=== PATIENT | female | born 1955 | race Caucasian/White ===

== ENCOUNTER 2020-08-24 10:09 | Emergency (ER) | payer BC, SELFPAY ==
[2020-08-24 10:20] VITALS: BP 128/75; PULSE 79; RESP 14; TEMP 36.6; O2SAT 99; BMI 24.3
[2020-08-24] MEDS: SODIUM CHLORIDE 0.9% 1,000 ML 1000 ML IV (10:41)
[2020-08-24 10:49] LABS: Add Manual Diff / Slide Review NO; Basophils Absolute Auto 100 /uL (0-100); Basophils Percent Auto 0.7 % (0-2); Eosinophils Absolute Auto 300 /uL (0-450); Eosinophils Percent Auto 2.4 % (2-4); Hematocrit 39.3 % (36-46); Hemoglobin 13.4 g/dL (12.0-16.0); Lymphocytes Absolute Auto 2700 /uL (1100-4500); Lymphocytes Percent Auto 21.3 % (25-40); Mean Corpuscular Hemoglobin 33.6 PG (26-34); Mean Corpuscular Volume 98.8 fL (80-100); Monocytes Absolute Auto 1200 /uL (0-900); Monocytes Percent Auto 9.5 % (3-14); Neutrophils Absolute Auto 8400 /uL (1500-7000); Neutrophils Percent Auto 66.1 % (50-75); Platelet Count 227 X10^3/uL (150-400); Red Blood Cell Count 3.98 X10^6/uL (4.0-5.2); Red Cell Distribution Width 12.4 % (11.6-14.8); White Blood Cell Count 12.6 X10^3/uL (4.5-11.0)
[2020-08-24 11:00] LABS: Alanine Aminotransferase 15 IU/L (<35); Albumin 4.2 g/dL (3.5-5.0); Albumin Globulin Ratio 1.4 (1.0-2.8); Alkaline Phosphatase 42 U/L (38-126); Aspartate Aminotransferase 27 IU/L (14-36); BUN Creatinine Ratio 17.3 (6-22); Bilirubin Total 0.8 mg/dL (0.2-1.3); Blood Urea Nitrogen 9 mg/dL (7-17); Calcium 9.2 mg/dL (8.4-10.2); Carbon Dioxide 28 mmol/L (22-32); Chloride 98 mmol/L (98-107); Estimated Glomerular Filt Rate > 60.0 mL/min (>60); Globulin 3.1 g/dL (1.7-4.1); Glucose 113 mg/dL (80-110); HEMOLYSIS 57 (0-50); Potassium 4.1 mmol/L (3.4-5.1); Sodium 130 mmol/L (137-145); Total Protein 7.3 g/dL (6.3-8.2)
--- NOTE | 2020-08-24 11:09 | ED.NAVMDI ---
HPI - Nausea/Vomiting/Diarrhea General Chief complaint: Nausea/Vomiting/Diarrhea Stated complaint: bloating/cramping Time Seen by Provider: 08/24/20 11:09 Source: patient Mode of arrival: Ambulatory Limitations: no limitations History of Present Illness HPI Narrative: This is a 65-year-old female comes emergency department complaint of diarrhea for the past 4 days. Patient states she has had frequency of diarrhea, she has not appreciated melena or hematochezia. She has had some burning at the rectal area times. She describes cramping and discomfort bilateral lower abdomen. She has not had any nausea, no vomiting. No fevers or chills. She denies chest pain or shortness of breath. She denies any upper abdominal discomfort. She has had some mild cramping in her lower back as well. She describes the cramping as feeling like menstrual cramps. She denies dysuria, urgency or sense of frequency. She denies any drop off for decrease in her urine output. No vaginal bleeding or discharge. She states no regular medications. She has had a tubal ligation remotely. She tried some Maalox at home had Pepto-Bismol without resolution. She comes in today as her symptoms have not resolved. No sick contacts she is aware of, no other household members have similar symptoms, she has not had similar symptoms in the past least not on a frequent basis. Positive for tobacco use, alcohol and occasional THC. Patient does note she has never had a colonoscopy she did have positive Hemoccult on screening exam several years ago but never completed follow-up for colonscopy. Related Data Previous Rx's Medication Instructions Recorded amoxicillin-pot clavulanate 1 tab PO Q12H #20 tab 08/24/20 [Augmentin] Allergies Allergy/AdvReac Type Severity Reaction Status Date / Time egg AdvReac Intermediate Vomiting Verified 08/24/20 10:25 Review of Systems Review of Systems ROS Unobtainable: All systems reviewed & are unremarkable except as noted in HPI and below Patient History Medical History (Updated 08/24/20 @ 12:09 by Isabelle Bernal DO) Sinusitis Surgical History (Updated 08/24/20 @ 11:31 by Isabelle Bernal DO) H/O tubal ligation Social History Smoking Status: Current every day smoker Smoking Status: Current every day smoker alcohol intake frequency: 3 or more drinks per day Substance Use Type: does not use Exam Narrative Exam Narrative: GENERAL: Alert and oriented x three, well-nourished female in mild distress. HEENT: Head normocephalic, atraumatic, EOMI, pupils reactive, face symmetric, moist mucous membranes NECK: Supple, full range of motion CARDIOVASCULAR: Regular rate and rhythm without murmurs, rubs or gallops. RESPIRATORY: Breath sounds equal bilaterally, no wheezes rales or rhonchi. ABDOMEN: Soft, mild bilateral lower abdominal tenderness. Hyperactive bowel sounds all 4 quadrants. No guarding or rebound, rigidity, no mass : No CVA tenderness EXTREMITIES: Normal range of motion, no clubbing or edema. Neurovascularly intact NEUROLOGICAL: Cranial nerves II through XII grossly intact. Moving all extremities. Normal gait. SKIN: Warm, dry, no petechiae, no rashes or lesions. Initial Vital Signs Initial Vital Signs: Vital Signs Temperature 97.9 F 08/24/20 10:20 Pulse Rate 79 08/24/20 10:20 Respiratory Rate 14 08/24/20 10:20 Blood Pressure 128/75 08/24/20 10:20 Pulse Oximetry 99 08/24/20 10:20 Course Orders Ordered: ED Orders 08/24/20 10:38 Complete Blood Count AUTO DIFF Stat Comprehensive Metabolic Panel Stat Lipase Stat 08/24/20 11:39 CT abdomen pelvis w con Stat Discontinued Medications Sodium Chloride (Normal Saline 0.9%) 1,000 mls @ 1,000 mls/hr IV BOLUS ONE Stop: 08/24/20 11:27 Last Infusion: 08/24/20 12:29 Dose: 0 mls/hr Documented by: Admin: 08/24/20 10:41 Dose: 1,000 mls/hr Documented by: CHEL Vital Signs Vital signs: Vital Signs - 8 hr 08/24/20 10:20 08/24/20 11:55 Temperature 97.9 F Pulse Rate 79 66 Respiratory Rate 14 16 Blood Pressure 128/75 135/66 Pulse Oximetry 99 99 MDM - Nausea/Vomiting/Diarrhea Lab Data Attestation: I reviewed the patient's lab results. Result diagrams: 08/24/20 10:38 08/24/20 10:38 Labs: Lab Results 08/24/20 08/24/20 08/24/20 Range/Units 10:38 10:38 10:38 WBC 12.6 H (4.5-11.0) X10^3/uL RBC 3.98 L (4.0-5.2) X10^6/uL Hgb 13.4 (12.0-16.0) g/dL Hct 39.3 (36-46) % MCV 98.8 (80-100) fL MCH 33.6 (26-34) PG MCHC 34.0 (30-36) % RDW 12.4 (11.6-14.8) % Plt Count 227 (150-400) X10^3/uL Neut % (Auto) 66.1 (50-75) % Lymph % (Auto) 21.3 L (25-40) % Taylor % (Auto) 9.5 (3-14) % Eos % (Auto) 2.4 (2-4) % Baso % (Auto) 0.7 (0-2) % Neut # (Auto) 8400 H (8303-1912) /uL Lymph # (Auto) 2700 (3748-8374) /uL Taylor # (Auto) 1200 H (0-900) /uL Eos # (Auto) 300 (0-450) /uL Baso # (Auto) 100 (0-100) /uL Sodium 130 L (137-145) mmol/L Potassium 4.1 (3.4-5.1) mmol/L Chloride 98 (98-107) mmol/L Carbon Dioxide 28 (22-32) mmol/L BUN 9 (7-17) mg/dL Creatinine 0.52 (0.52-1.04) mg/dL Estimated GFR > 60.0 (>60) mL/min BUN/Creatinine Ratio 17.3 (6-22) Glucose 113 H (80-110) mg/dL Calcium 9.2 (8.4-10.2) mg/dL Total Bilirubin 0.8 (0.2-1.3) mg/dL AST 27 (14-36) IU/L ALT 15 (<35) IU/L Alkaline Phosphatase 42 (38-126) U/L Total Protein 7.3 (6.3-8.2) g/dL Albumin 4.2 (3.5-5.0) g/dL Globulin 3.1 (1.7-4.1) g/dL Albumin/Globulin Ratio 1.4 (1.0-2.8) Lipase 56 (23-300) U/L Urine Dip Bedside Urine Glucose Negative Bedside Urine Bilirubin - Negative Bedside Urine Ketone - Negative Urine Specific [place] 1.015 Bedside Urine Occult Blood - Negative Bedside Urine pH 6.0 Bedside Urine Protein - Negative Bedside Urine Urobilinogen - Negative Bedside Urine Nitrite - Negative Bedside Urine Leukocytes - Negative Esterase Imaging Data CT scan - abdomen/pelvis: Radiologist's Impression: [address] [id number] Scan ReportSigned Patient: [facility] [id number]: 1955cct:[id number]/Sex: 65 / FDate of Service: 08/24/20Loc: EDAccession Number: [id number] Procedure: CT abdomen pelvis w con Ordering Provider: Isabelle Bernal D.O. PROCEDURE: CT ABDOMEN PELVIS W CON INDICATIONS: b/l lower abd pain, diarrhea x 4 days. TECHNIQUE: After the administration of intravenous contrast, 5 mm thick sections acquired from the diaphragm to the symphysis. 5 mm coronal and sagittal reformats were acquired. For radiation dose reduction, the following was used: automated exposure control, adjustment of mA and/or kV according to patient size. COMPARISON: None. FINDINGS: Image quality: Excellent. ABDOMEN: Lung bases: Lung bases are clear. Heart size is normal. Solid organs: Liver is normal in size and enhancement. Gallbladder appears normal. Biliary system is non dilated. Pancreas enhances normally. Spleen is normal in size and enhancement. No adrenal nodules. Kidneys demonstrate normal size and enhancement, without hydronephrosis. Multiple cysts are seen in the left kidney. Peritoneum and bowel: Bowel wall thickening and inflammatory fat stranding is seen surrounding a diverticulum in the distal sigmoid colon with inflammatory changes extending into the rectum. No discrete fluid collection is seen. There is no pneumoperitoneum. There are no signs of bowel obstruction. The appendix appears normal. Nodes and vessels: No retroperitoneal or mesenteric adenopathy by size criteria. Aorta and inferior vena cava are normal in size. Mild to moderate atherosclerotic calcifications are seen in the aorta. Miscellaneous: No ventral hernias. PELVIS: Genitourinary: Bladder wall thickness is not well evaluated due to underdistention. The uterus is normal in size. Miscellaneous: No inguinal hernias or adenopathy. Bones: No suspicious bony lesions. No vertebral body compression fractures. IMPRESSION: Acute uncomplicated sigmoid diverticulitis. Dictated by: Miller Caballero M.D. on 08/24/2020 at 11:51 Approved by: Miller Caballero M.D. on 08/24/2020 at 11:57 [facility] Narrative Medical decision making narrative: This is a 65-year-old female with complaint of 4 days of abdominal pain, bloating, cramping and very small amounts of diarrhea. Patient states symptoms have not been improving. Patient labs show a mild leukocytosis, no other significant altered labs. CT imaging was ordered as patient had a positive Hemoccult several years ago but never followed up for colonoscopy. Todays imaging shows diverticulitis, plan for Augmentin BID. Patient and I did discuss that this does not equate to colonoscopy screening and she still does need a colonoscopy. She expresses understanding. Discharge Plan Departure Patient Disposition: Home Clinical Impression: Sigmoid diverticulitis Instructions: DI for Diverticulosis Activity Restrictions/Additional Instructions: Follow-up with her physician in the next 3-5 days if you are not having resolution of your symptoms. Your imaging today shows diverticulitis. You may take Tylenol to a 1000 mg every 8 hours and/or ibuprofen up to 600 mg every 6 hours as needed for pain. Take antibiotics until they are completely gone. [facility] [place] Return to the ER for fevers greater 100.4 F, worsening abdominal or back pain, persistent vomiting, black or bloody stools, but has this or passing out or other new or concerning symptoms. Prescriptions: New amoxicillin-pot clavulanate [Augmentin] 875-125 mg tablet 1 tab PO Q12H Qty: 20 RF: 0 Referrals: Hilary Parekh MD [Physician] -
--- NOTE | 2020-08-24 11:39 | DI.CT.S_ITS ---
PROCEDURE: CT ABDOMEN PELVIS W CON INDICATIONS: b/l lower abd pain, diarrhea x 4 days. TECHNIQUE: After the administration of intravenous contrast, 5 mm thick sections acquired from the diaphragm to the symphysis. 5 mm coronal and sagittal reformats were acquired. For radiation dose reduction, the following was used: automated exposure control, adjustment of mA and/or kV according to patient size. COMPARISON: None. FINDINGS: Image quality: Excellent. ABDOMEN: Lung bases: Lung bases are clear. Heart size is normal. Solid organs: Liver is normal in size and enhancement. Gallbladder appears normal. Biliary system is non dilated. Pancreas enhances normally. Spleen is normal in size and enhancement. No adrenal nodules. Kidneys demonstrate normal size and enhancement, without hydronephrosis. Multiple cysts are seen in the left kidney. Peritoneum and bowel: Bowel wall thickening and inflammatory fat stranding is seen surrounding a diverticulum in the distal sigmoid colon with inflammatory changes extending into the rectum. No discrete fluid collection is seen. There is no pneumoperitoneum. There are no signs of bowel obstruction. The appendix appears normal. Nodes and vessels: No retroperitoneal or mesenteric adenopathy by size criteria. Aorta and inferior vena cava are normal in size. Mild to moderate atherosclerotic calcifications are seen in the aorta. Miscellaneous: No ventral hernias. PELVIS: Genitourinary: Bladder wall thickness is not well evaluated due to underdistention. The uterus is normal in size. Miscellaneous: No inguinal hernias or adenopathy. Bones: No suspicious bony lesions. No vertebral body compression fractures. IMPRESSION: Acute uncomplicated sigmoid diverticulitis. Dictated by: Miller Caballero M.D. on 08/24/2020 at 11:51 Approved by: Miller Caballero M.D. on 08/24/2020 at 11:57
[2020-08-24 11:40] LABS: Lipase 56 U/L (23-300)
[2020-08-24 11:55] VITALS: BP 135/66; PULSE 66; RESP 16; O2SAT 99
== END 2020-08-24 12:39 | disposition home or self-care (01) ==
PROVIDERS: Emergency Provider Emergency Medicine
DX: K57.32 Diverticulitis of large intestine without perforation or abscess without bleeding (principal)
CPT/HCPCS: 36415; 74177; 80053; 81003; 83690; 85025; 96360; 96361; 99283; 99284; Q9967

== ENCOUNTER → 2020-10-29 09:50 | Outpatient (CLI) | payer BC, SELFPAY ==
[2020-10-29 10:41] LABS: COVID19 -Nasal RAPID Negative (Negative)
== END ==
PROVIDERS: PCP Student in an Organized Health Care Education/Training Program; Visit Provider Surgery
DX: Z20.822 Contact with and (suspected) exposure to COVID-19 (principal)
CPT/HCPCS: 87635; C9803

== ENCOUNTER 2020-10-30 11:45 | Day surgery (SDC) | payer BC, SELFPAY ==
[2020-10-30] VITALS (8 sets, daily range): BP systolic 106–139; BP diastolic 65–86; PULSE 68–78; RESP 14–17; TEMP 36.2–36.8; O2SAT 96–100; BMI 23.8
--- NOTE | 2020-10-30 | PATH_ITS ---
[facility] Accession Number: [id number] . 01 Material submitted: . PART A: colon - ASCENDING COLON PART B: body - POLYP @40CM PART C: body - POLYP @15CM X2 . 01 Clinical history: . A) RULE OUT COLITIS . 02 Diagnosis: A. Ascending Colon, Biopsy: Colonic mucosa with no diagnostic abnormality. Negative for active, chronic, and microscopic colitis. Negative for dysplasia and malignancy. . B. Colon, Polyp at 40 cm, Biopsy: Fragments of hyperplastic polyp and benign lymphoid aggregate. . C. Colon, Polyp at 15 cm x2, Biopsies: Hyperplastic polyps. [facility] 11/05/2020 1451 Local . 02 Electronically signed: . Estee Candelario MD, Pathologist NPI- [id number] . 01 Gross description: . Part A: ASCENDING COLON: Received in formalin are 2 fragment(s) of benton, soft tissue measuring 0.1 x 0.1 x 0.1 cm to 0.2 x 0.2 x 0.2 cm submitted entirely in 1 cassette(s) Part B: POLYP @40CM: Received in formalin are 3 fragment(s) of benton, soft tissue measuring 0.1 x 0.1 x 0.1 cm to 0.2 x 0.1 x 0.1 cm submitted entirely in 1 cassette(s) Part C: POLYP @15CM X2: Received in formalin are 4 fragment(s) of benton, soft tissue measuring 0.1 x 0.1 x 0.1 cm to 0.4 x 0.2 x 0.2 cm submitted entirely in 1 cassette(s) /STEPHANIE 10/31/20202024 Local . 02 Pathologist provided ICD-10: Z12.11, K63.5 . 02 CPT . 309796, [id number], [id number] Performed at: 01 [facility] [address] [id number] MD Mani Huff MD Phone: [phone] Performed at: 02 [facility] [address] [place], [place] [id number] MD Estee Candelario MD Phone: [phone]
--- NOTE | 2020-10-30 13:00 | PM.HP.1 ---
History of Present Illness History of Present Illness Date Patient Seen: 10/30/20 Time Patient Seen: 13:00 Chief complaint: SDC Narrative: This is a 65-year-old woman with history of smoking, who 3 months ago was seen in the ER for left lower quadrant pain and was diagnosed with uncomplicated diverticulitis. She was sent home with 10 days of oral antibiotics, and completed her antibiotics, and her symptoms resolved. She says she has never had a colonoscopy. She did have a positive Cologuard test a few years ago, but never followed up to get the colonoscopy. She is not currently have a primary care doctor, and is not sure when she last saw a primary care doctor. She says she is otherwise well, and denies any apparent medical problems. She takes a daily multivitamin. ROS: She denies constipation, melena, hematochezia, unexplained abdominal pain, unexplained weight loss. She denies fevers. She reports unknown amount of weight gain since COVID. Thirteen system review is otherwise negative other than as mentioned below and in HPI. PE GENERAL: Alert, comfortable, moderate psychomotor agitation. Appears stated age. Answers questions promptly and appropriately. Vital signs noted. HENT: Normocephalic, atraumatic. Hearing intact. EYES: Conjunctiva pink, sclera white, no periorbital swelling. CARDIOVASCULAR: Regular rate. No pedal edema. RESPIRATORY: Non-tachypneic, breathing comfortably on room air. GASTROINTESTINAL: Abdomen soft and non-distended, nontender, no masses, no incisional scars, no palpable hernias GENITALURINARY: No flank tenderness. MUSCULOSKELETAL: Equal tone and mass bilaterally. SKIN: Warm, dry, soft, appropriate color for ethnicity. No other lesions, rashes, or wounds. NEURO: Alert and Oriented X 3. No gross sensory deficits, or cognitive issues. PSYCH: Appropriate affect and mood. Patient History Medical History Sinusitis Surgical History H/O tubal ligation Family & Social History Social History: household members none Tobacco & Substance use: Tobacco type cigarettes Smoking Status Current every day smoker Smoking packs per day 1 alcohol intake current alcohol intake frequency 3 or more drinks per day Substance Use Type does not use Meds Home Medications and Allergies Home Medications Medication Instructions Recorded Confirmed Type multivitamin 1 tab PO DAILY 09/05/20 10/30/20 History Allergies Allergy/AdvReac Type Severity Reaction Status Date / Time egg AdvReac Intermediate Vomiting Verified 10/30/20 12:11 Exam Vital Signs (past 8 hours): - 10/30/20 12:15 Temperature 98.2 F Pulse Rate 71 Respiratory Rate 14 Blood Pressure 139/86 Pulse Oximetry 100 Oxygen Delivery Method Room Air Assessment & Plan Assessment and plan (1) Smoker unmotivated to quit: Status: Chronic (2) Positive colorectal cancer screening using Cologuard test: Status: Acute (3) Diverticulitis: Status: Acute Assessment & Plan narrative: Risks and benefits of screening colonoscopy and possible polypectomy were discussed with the patient including risk of bleeding, perforation, need for additional procedures, risks of anesthesia. The patient desires to proceed with the colonoscopy procedure. COVID-19 COVID-19 status: Negative Result date/Date tested (Pos, Neg/Pending): 10/29/20 Time Spent With Patient Time with patient: 15-24 minutes Quality VTE Deep Vein Thrombosis/Pulmonary Embolism Present on Admission: No
--- NOTE | 2020-10-30 13:03 | P.OP.ENDO_ITS ---
Operative Date/Time/Diagnoses Date of procedure: 10/30/20 Time of procedure: 13:03 Pre-op diagnosis: Positive Cologuard test, history diverticulitis, never had a colonoscopy Post-op diagnosis: other (Extensive diverticulosis, friable colon wall in the ascending colon, a few small polyps in the sigmoid and rectum) Procedure & Clinicians Study performed: Colonoscopy Procedural sedation performed by the endoscopist Biopsy of ascending colon wall with standard forceps Polypectomy x3 with Jumbo forceps Same procedure as scheduled: Yes Indications: Positive Cologuard test, history of diverticulitis, never had a colonoscopy Surgeon: Vanessa Landis Procedure Notes SCOAP/Timeout: Performed Procedure in detail: The patient was brought to the room and placed in left lateral decubitus position with all bony prominences padded. A time-out was performed and then the patient was given procedural sedation starting with 4 mg of Versed and 100 mcg of fentanyl. Vitals were monitored throughout the procedure and remained stable. Once adequately sedated, the procedure was begun. A rectal exam was performed revealing no abnormalities. The colonoscope was then introduced to the rectum and advanced to the cecum in the usual fashion. The cecum was identified by the appendiceal orifice, the mucosal tri- fold, and the ileocecal valve. The scope was then retracted while rotating side to side and examining each mucosal fold. In the ascending colon there was an about a 15-20 cm patch of very friable mucosa which was slightly bleeding. This area is biopsied to rule out colitis. There was extensive diverticulosis throughout the colon, worst in the descending and sigmoid colon. Three polyps were removed from the rectum and sigmoid colon using Jumbo forceps. The prep was moderate, but not adequate to rule out lesions smaller than 5 mm. At the conclusion of the procedure retroflexion was performed and small grade 1-2 internal hemorrhoids without stigmata of bleeding were seen. The scope was then withdrawn from the rectum the procedure was concluded. The patient tolerated the procedure well and was transferred to the PACU in stable condition. A total of 7 mg of Versed and 200 micro g of fentanyl were used for the entire procedure. Scope withdrawal time: 13 Sedation minutes: 21 Findings: diverticulosis, polyp and other findings (Friable mucosa in the ascending colon) Specimen(s): other (Biopsy of ascending colon mucosa, polypectomy x3) Complications: none Impression: Potential cause of positive Cologuard is this friable mucosa in the ascending colon which may be microscopic or inflammatory colitis. She did have 3 small polyps, which appeared to be benign adenomatous/precancerous polyps. Post-procedure Recommendations: Colonscopy in 5 years Follow up: as needed Disposition: PACU
[2020-10-30] MEDS: MIDAZOLAM 5 MG/5 ML VIAL IV (13:30)
[2020-10-30] MEDS: fentaNYL 250 MCG/5 ML INJ IV (13:30)
== END 2020-10-30 14:15 | disposition home or self-care (01) ==
PROVIDERS: PCP Student in an Organized Health Care Education/Training Program; Referring Provider Surgery; Visit Provider Surgery
PROC: 0DJD8ZZ Inspection of Lower Intestinal Tract, Via Natural or Artificial Opening Endoscopic (ICD-10-PCS; CPT 45378; principal; 2020-10-30 13:00)
DX: R19.5 Other fecal abnormalities (principal); F17.200 Nicotine dependence, unspecified, uncomplicated; K57.30 Diverticulosis of large intestine without perforation or abscess without bleeding; Z87.19 Personal history of other diseases of the digestive system; K63.5 Polyp of colon
CPT/HCPCS: 45380; 99152; J2250; J3010

== ENCOUNTER 2021-12-23 01:26 | Emergency (ER) | payer BC, SELFPAY ==
[2021-12-23 01:30] VITALS: BP 139/98; PULSE 80; RESP 18; O2SAT 99; BMI 23.8
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
--- NOTE | 2021-12-23 01:33 | DI.RAD.S_ITS ---
PROCEDURE: XR ANKLE LT MIN 3V INDICATIONS: pain after fall TECHNIQUE: 3 views of the ankle were acquired. COMPARISON: None. FINDINGS: Bones: There is a spiral fracture of the distal fibular diaphysis with moderate lateral displacement and mild lateral angulation. There is associated widening of the distal tibial fibular syndesmosis. A fracture of the medial malleolus is also demonstrated with moderate lateral displacement. There is a suspected small posterior malleolus fracture. There is lateral dislocation of the tibiotalar joint with mild lateral angulation. Soft tissues: There is periarticular soft tissue swelling at the tibiotalar joint. Achilles tendon appears intact. IMPRESSION: 1. Trimalleolar fracture-dislocation of the ankle as described. Dictated by: Mani Granado M.D. on 12/23/2021 at 1:59 Approved by: Mani Granado M.D. on 12/23/2021 at 2:02
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
--- NOTE | 2021-12-23 01:36 | ED.LOWEXIN ---
HPI - Extremity Injury (Lower) General Chief Complaint: Extremity Injury, Lower Stated Complaint: ankle pain Time Seen by Provider: 12/23/21 01:30 Source: patient Mode of arrival: EMS Limitations: no limitations History of Present Illness HPI Narrative: 66-year-old female who arrived by EMS for evaluation of a left ankle injury. She stated that this evening she was drinking and ?partying? with some friends when she was going inside and she missed a step and fell. She sustained an injury to her left ankle. She tried to stand on it afterwards but was unable to. She stated that she did hit her head. No loss of consciousness. She arrived not in a backboard not in a cervical collar. No splint to her left leg. Related Data Home Medications Medication Instructions Recorded Confirmed multivitamin 1 tab PO DAILY 09/05/20 10/30/20 Previous Rx's Medication Instructions Recorded hydrocodone 5 mg-acetaminophen 325 1 tab PO Q6H PRN pain #14 tabs 12/23/21 mg tablet Allergies Allergy/AdvReac Type Severity Reaction Status Date / Time egg AdvReac Intermediate Vomiting Verified 10/30/20 12:11 Review of Systems Constitutional Constitutional: Reports system reviewed and no additional complaints, except as documented Musculoskeletal Musculoskeletal: Reports system reviewed and no additional complaints, except as documented Integumentary/Breasts Skin/Breast: Reports system reviewed and no additional complaints, except as documented Neurologic Neurologic: Reports system reviewed and no additional complaints, except as documented Hematologic/Lymphatic On Anticoagulants: No Patient History Medical History Sinusitis Surgical History H/O tubal ligation Social History marital status: unknown household members: none Smoking Status: Current every day smoker alcohol intake: current Smoking Status: Current every day smoker alcohol intake frequency: 3 or more drinks per day Substance Use Type: does not use Exam Initial Vital Signs Initial Vital Signs: Vital Signs Pulse Rate 80 12/23/21 01:30 Respiratory Rate 18 12/23/21 01:30 Blood Pressure 139/98 H 12/23/21 01:30 Pulse Oximetry 99 12/23/21 01:30 Oxygen Delivery Method 12/23/21 01:30 HENMT Head: contusion (Left temporal region) Face and sinus: normal facial exam Resp Effort & Inspection: normal respiratory effort Auscultation: clear to auscultation bilaterally Cardio Rate: regular rate Rhythm: regular rhythm Skin Other: Bruising to the left temporal region. Also has bruising along the medial aspect of the left ankle. Neuro Speech: speech normal Sensory Exam: no sensory deficits noted Other: Alert oriented x3. Extrem Other: Knee is unremarkable. Does have swelling to her left ankle with tenderness to palpation. Procedures Orthopedic Fracture Reduction Fracture #1: Time Out Performed: Yes Side: left Fracture Reduction Location: tibia and fibula Analgesia: none Technique: direct manipulation Post Reduction X-rays Demonstrate: anatomical reduction Post-reduction neuro exam: no change Post-reduction vascular exam: no change Splint Applied: Yes Orthopedic Splinting/Casting Injury #1: Side: left Lower Extremity Injury Location: ankle Lower Extremity Immobilizer: posterior splint and stirrup splint Post splinting neuro exam: intact Post splinting vascular exam: intact Placed by: Provider Scores Nexus Score for C-Spine Focal Neurologic deficit present: No Midline spinal tenderness present: No Altered level of conciousness present: No Intoxication present: Yes Distracting Injury Present: No Nexus Criteria for C-spine: 1 Course Orders Ordered: ED Orders 12/23/21 01:33 CT cervical spine wo con Stat CT head/brain wo con Stat XR ankle LT min 3V Stat 12/23/21 03:45 XR ankle LT min 3V Stat Vital Signs Vital signs: Vital Signs - 8 hr 12/23/21 01:30 Pulse Rate 80 Respiratory Rate 18 Blood Pressure 139/98 H Pulse Oximetry 99 Oxygen Delivery Method Room Air MDM - Extremity Injury (Lower) Imaging Data Extremity x-ray #1: Radiologist's Impression: [address] [address] XRay Report Signed Patient: Teresa Duval MR#: [id number] : 1955 Acct:[id number] Age/Sex: 66 / F Date of Service: 12/23/21 Loc: ED Accession Number: [id number] ?? Procedure: XR ankle LT min 3V Ordering Provider: Pedro Lee D.O. PROCEDURE:? XR ANKLE LT MIN 3V ? INDICATIONS:? pain after fall ? TECHNIQUE:? 3 views of the ankle were acquired.? ? COMPARISON:? None. ? FINDINGS:? ? Bones:? There is a spiral fracture of the distal fibular diaphysis with moderate lateral displacement and mild lateral angulation.? There is associated widening of the distal tibial fibular syndesmosis.? A fracture of the medial malleolus is also demonstrated with moderate lateral displacement.? There is a suspected small posterior malleolus fracture.? There is lateral dislocation of the tibiotalar joint with mild lateral angulation. ? Soft tissues:? There is periarticular soft tissue swelling at the tibiotalar joint.? Achilles tendon appears intact.? ? ? IMPRESSION:? ? 1. Trimalleolar fracture-dislocation of the ankle as described. ? ? ? Dictated by: Mani Granado M.D. on 12/23/2021 at 1:59 ? ? Approved by: Mani Granado M.D. on 12/23/2021 at 2:02?? Extremity x-ray #2: Radiologist's Impression: Obliquely oriented, minimally displaced fracture of the medial and lateral malleoli status post reduction with anatomic alignment CT - cervical spine: Radiologist's Impression: Degenerative spondylolysis. No acute fracture CT scan - head: Radiologist's Impression: No acute intracranial findings MDM Narrative Medical decision making narrative: Cervical collar was placed upon arrival to the emergency department secondary to her intoxication status. Head CT cervical spine CT are unremarkable. Patient does have a trimalleolar fracture to the left ankle. She is neurovascularly intact. This was reduced without incident. Postreduction x-rays show anatomic alignment. Patient was placed in a splint. She was informed to remain nonweightbearing and to treat the splint like a cast and keep it on and keep it dry. She was given information for follow-up with Orthopedic surgery. Was given return precautions. She expressed understanding and agreement. Discharge Plan Departure Patient Disposition: Home Clinical Impression: Ankle fracture, left, Alcohol intoxication, Contusion of scalp Instructions: How to Use Crutches, DI for Ankle Fracture, How to Take Care of Your Splint Activity Restrictions/Additional Instructions: The splint that was placed this evening does need to stay on and stay clean and stay dry. You do need to treat it like a cast. Your to use the crutches. Do not walk on your left leg. You are going to require follow-up with orthopedic surgery as the injury that you have sustained is most likely going to require surgical intervention. Contact the orthopedic providers with a number provided below. Contact your primary doctor for a follow-up. A prescription for pain medicine was transmitted to [facility] in [place]. Return to the emergency department for any new or worsening symptoms. Prescriptions: New hydrocodone-acetaminophen 5-325 mg tablet 1 tab PO Q6H PRN (Reason: pain) Qty: 14 0RF No Action multivitamin Tablet 1 tab PO DAILY Referrals: Florencio Moore MD [Primary Care Provider] - Ana M Petersen MD [Physician] -
--- NOTE | 2021-12-23 03:45 | DI.RAD.S_ITS ---
PROCEDURE: XR ANKLE LT MIN 3V INDICATIONS: post reduction in splint TECHNIQUE: 3 views of the ankle were acquired. COMPARISON: [facility], , XR ANKLE LT MIN 3V, 12/23/2021, 1:48. FINDINGS: Bones: Interval reduction with improved alignment of trimalleolar fracture. Soft tissues: No tibiotalar joint effusion. Achilles tendon appears normal. IMPRESSION: Post reduction with improved alignment of trimalleolar fracture. Dictated by: Jeana August M.D. on 12/23/2021 at 11:02 Approved by: Jeana August M.D. on 12/23/2021 at 11:05
--- NOTE | 2021-12-23 04:30 | PC.NURSE ---
splint applied per Dr Lee, pt refused crutches states she already has a couple of pair at home.
[2021-12-23 06:28] VITALS: BP 134/86; PULSE 82; RESP 18; O2SAT 98
== END 2021-12-23 06:29 | disposition home or self-care (01) ==
PROVIDERS: Emergency Provider Emergency Medicine; PCP Student in an Organized Health Care Education/Training Program
DX: S82.852A Displaced trimalleolar fracture of left lower leg, initial encounter for closed fracture (principal); S00.03XA Contusion of scalp, initial encounter; W10.9XXA Fall (on) (from) unspecified stairs and steps, initial encounter; F10.129 Alcohol abuse with intoxication, unspecified
CPT/HCPCS: 27752; 70450; 72125; 73610; 99284

== ENCOUNTER → 2022-11-28 12:06 | Outpatient (CLI) | payer BC, SELFPAY ==
[2022-11-28 13:15] LABS: Add Manual Diff / Slide Review NO; Basophils Absolute Auto 100 /uL (0-100); Basophils Percent Auto 0.9 % (0-2); Eosinophils Absolute Auto 300 /uL (0-450); Eosinophils Percent Auto 4.3 % (2-4); Hematocrit 42.5 % (36-46); Hemoglobin 14.9 g/dL (12.0-16.0); Lymphocytes Absolute Auto 3300 /uL (1100-4500); Lymphocytes Percent Auto 39.9 % (25-40); Mean Corpuscular HGB Conc 35.2 % (30-36); Mean Corpuscular Hemoglobin 34.2 PG (26-34); Mean Corpuscular Volume 97.2 fL (80-100); Monocytes Absolute Auto 900 /uL (0-900); Neutrophils Absolute Auto 3600 /uL (1500-7000); Neutrophils Percent Auto 43.9 % (50-75); Platelet Count 260 X10^3/uL (150-400); Red Blood Cell Count 4.37 X10^6/uL (4.0-5.2); Red Cell Distribution Width 12.8 % (11.6-14.8); White Blood Cell Count 8.1 X10^3/uL (4.5-11.0)
[2022-11-28 13:25] LABS: Alanine Aminotransferase 22 IU/L (<35); Albumin 4.7 g/dL (3.5-5.0); Albumin Globulin Ratio 1.6 (1.0-2.8); Alkaline Phosphatase 65 U/L (38-126); Aspartate Aminotransferase 28 IU/L (14-36); BUN Creatinine Ratio 20.7 (6-22); Bilirubin Total 0.8 mg/dL (0.2-1.3); Blood Urea Nitrogen 12 mg/dL (7-17); Carbon Dioxide 28 mmol/L (22-32); Chloride 96 mmol/L (98-107); Cholesterol 254 mg/dL (140-199); Estimated Glomerular Filt Rate > 60 mL/min (>60); Glucose 100 mg/dL (80-110); HDL Cholesterol 61 mg/dL (40-60); HEMOLYSIS < 15 (0-50); LDL Cholesterol Calculated 150 mg/dL (<100); Potassium 4.8 mmol/L (3.4-5.1); Sodium 134 mmol/L (137-145); Total Protein 7.7 g/dL (6.3-8.2); Triglycerides 214 mg/dL (35-150)
[2022-11-28 13:53] LABS: TSH w/ Reflex to FT4 1.78 uIU/mL (0.47-4.68)
[2022-11-28 14:23] LABS: Hep C Virus Ab w/Reflex Quant NEGATIVE s/c (NEGATIVE)
[2022-11-28 15:24] LABS: Appearance Urine UA CLEAR; Bilirubin Urine UA NEGATIVE (NEGATIVE); Color Urine UA YELLOW; Glucose Urine UA NEGATIVE (Negative); Ketones Urine UA NEGATIVE (NEGATIVE); Leukocyte Esterase Urine UA NEGATIVE (NEGATIVE); Nitrite Urine UA NEGATIVE (Negative); Occult Blood Urine UA NEGATIVE (Negative); Protein Urine UA NEGATIVE (Negative); Specific Gravity Urine UA <=1.005 (1.000-1.035); Urobilinogen Urine UA 0.2 E.U./dL (0.2)
[2022-11-28 15:33] LABS: pH Urine UA 7.5 (4.5-8.0)
[2022-11-28 15:41] LABS: Bacteria Urine Few (2-10); Culture Indicated Urine Cult Not Indicated; RBC Urine 0-1/HPF (0-5/HPF); Squamous Epithelial Cell Urine 5-10 /HPF (0-5/HPF); WBC Urine 0-1/HPF (0-5/HPF)
== END ==
PROVIDERS: PCP Pediatrics; Referring Provider Pediatrics; Visit Provider Pediatrics
DX: Z00.00 Encounter for general adult medical examination without abnormal findings (principal); E78.2 Mixed hyperlipidemia; Z72.0 Tobacco use
CPT/HCPCS: 36415; 80053; 80061; 81001; 84443; 85025; 86803

== ENCOUNTER → 2023-01-19 | Outpatient (CLI) | payer BC, SELFPAY ==
--- NOTE | 2023-01-19 10:34 | DI.RAD.S_ITS ---
Bone Density Report Name: STANLEY LOPEZ Age: 67 Sex: Female Ethnicity: White Date of : 1955 Indication: osteopenia; Referring Provider: JAXON BATISTA Study: Bone densitometry was performed. Exam Date: January 19, 2023 Accession number: [id number] Bone Density: Region BMD T-score Z-score Classification AP Spine(L1-L4) 0.943 -0.9 0.9 Normal Femoral Neck (Left) 0.627 -2.0 -0.4 Osteopenia Total Hip (Left) 0.695 -2.0 -0.7 Osteopenia Femoral Neck (Right) 0.639 -1.9 -0.3 Osteopenia Total Hip (Right) 0.711 -1.9 -0.6 Osteopenia Total Hip Mean 0.703 -2.0 -0.7 Osteopenia World Health Organization criteria for BMD impression classify patients as: Normal (T-score at or above -1.0), Osteopenia (T-score between -1.0 and -2.5), or Osteoporosis (T-score at or below -2.5). 10-year Fracture Risk(1): Major Osteoporotic Fracture 14% Hip Fracture 4.3% Reported Risk Factors: [place] (), Neck BMD=0.627, BMI=24.1, smoking, alcohol use (1) FRAX(R) Version 3.08. Fracture probability calculated for an untreated patient. Fracture probability may be lower if the patient has received treatment. Previous Exams: -- Region Exam Age BMD T-score BMD Change BMD Change Date g/cm2 vs Baseline vs Previous -- Total Hip(Left) 01/19/2023 67 0.695 -2.0 0.012 (1.7%) 0.012 (1.7%) 01/19/2023 67 0.683 -2.1 -- *Denotes significance at 95% confidence level, LSC for Total Hip = 0.027 g/cm2 Impression: The patient has low bone mass, based on the Left Total Hip T-score. The patient has an estimated ten-year risk of hip fracture of 4.3% and an estimated ten-year risk of major fracture of 14%, based on the WHO FRAX algorithm. The patient has risk factors, including: smoking, excessive alcohol use. No significant bone loss was observed. Discussion: BONE DENSITY IS LOW AT ONE OR MORE SKELETAL SITES. THE PATIENT'S BMD AND CLINICAL RISK FACTORS CONTRIBUTE TO THIS PATIENT'S INCREASED RISK OF FRACTURE. This patient's lowest T-score is low at one or more skeletal sites. It meets the World Health Organization's (WHO) criteria for low bone mass (T-score between -1.0 and -2.5). The patient's 10-year risk of hip fracture as calculated by FRAX exceeds the threshold where pharmacological therapy is recommended by the National Osteoporosis Foundation (NOF). However, all treatment decisions require clinical judgment and consideration of individual patient factors, including patient preferences, comorbidities, previous drug use, risk factors not captured in the FRAX model (e.g., frailty, falls, vitamin D deficiency, increased bone turnover, interval significant decline in bone density) and possible under or overestimation of fracture risk by FRAX. The patient should follow a healthful lifestyle (good nutrition with adequate calcium and vitamin D, and appropriate weight-bearing exercise). Follow-Up: Consider a repeat BMD and Vertebral Fracture Assessment (VFA) exam in 2 years or sooner if medically necessary, to reassess this patient's status. Reported by: GIBSON GARNER M.D. on 01/19/2023 12:01:00 PM.
== END ==
PROVIDERS: PCP Pediatrics; Referring Provider Pediatrics; Visit Provider Pediatrics
DX: S82.892A Other fracture of left lower leg, initial encounter for closed fracture (principal); Z78.0 Asymptomatic menopausal state; M85.852 Other specified disorders of bone density and structure, left thigh
CPT/HCPCS: 77080

== ENCOUNTER → 2023-03-21 08:58 | Outpatient (CLI) | payer BC, SELFPAY ==
[2023-03-21 09:45] LABS: Cholesterol 190 mg/dL (140-199); HDL Cholesterol 54 mg/dL (40-60); LDL Cholesterol Calculated 110 mg/dL (<100); Triglycerides 129 mg/dL (35-150)
== END ==
PROVIDERS: PCP Pediatrics; Referring Provider Pediatrics; Visit Provider Pediatrics
DX: E78.2 Mixed hyperlipidemia (principal)
CPT/HCPCS: 36415; 80061

== ENCOUNTER → 2023-08-04 10:07 | Outpatient (CLI) | payer MEDICARE, OTHER, SELFPAY ==
[2023-08-04 11:51] LABS: Cholesterol 237 mg/dL (140-199); HDL Cholesterol 57 mg/dL (40-60); LDL Cholesterol Calculated 158 mg/dL (<100); Triglycerides 108 mg/dL (35-150)
== END ==
PROVIDERS: PCP Student in an Organized Health Care Education/Training Program; Referring Provider Student in an Organized Health Care Education/Training Program; Visit Provider Student in an Organized Health Care Education/Training Program
DX: E78.2 Mixed hyperlipidemia (principal)
CPT/HCPCS: 36415; 80061

== ENCOUNTER → 2023-11-16 09:10 | Outpatient (CLI) | payer MEDICARE, OTHER, SELFPAY ==
[2023-11-16 11:12] LABS: Hemoglobin A1C% w Est Avg Glu 4.9 % (4.0-6.0)
[2023-11-16 11:26] LABS: Cholesterol 224 mg/dL (140-199); HDL Cholesterol 65 mg/dL (40-60); LDL Cholesterol Calculated 137 mg/dL (<100); Triglycerides 109 mg/dL (35-150)
== END ==
PROVIDERS: PCP Student in an Organized Health Care Education/Training Program; Referring Provider Family Medicine; Visit Provider Family Medicine
DX: R73.03 Prediabetes (principal); E78.2 Mixed hyperlipidemia
CPT/HCPCS: 36415; 80061; 83036

== ENCOUNTER → 2024-03-09 10:41 | Outpatient (CLI) | payer MEDICARE, OTHER, SELFPAY ==
--- NOTE | 2024-03-09 10:42 | DI.RAD.S_ITS ---
PROCEDURE: XR DEXA AXIAL SKELETON INDICATIONS: osteopenia COMPARISON: [facility], CR, XR DEXA AXIAL SKELETON, 01/19/2023, 11:14. FINDINGS: Lumbar Spine: Bone mineral density is 0.943 g/cm2, T score -0.9. There is interval 0.1% decrease in total lumbar spine bone mineral density. Left Hip: Bone mineral density 0.681 g/cm2, T score -2.1. There is interval 0.4% decrease in total left hip bone mineral density. Left Femoral Neck: Bone mineral density is 0.595 g/cm2, T score -2.3. There is interval 8.5% decrease in left femoral neck bone mineral density. Right Hip: Bone mineral density 0.711 g/cm2, T score -1.9. There is interval 0.1% decrease in total right hip bone mineral density. Right Femoral Neck: Bone mineral density 0.567 g/cm2, T score -2.5. There is interval 11.2% decrease in right femoral neck bone mineral density. Fracture Risk Calculation (when applicable): 10-year fracture risk of a major osteoporotic fracture 19 percent and of a hip fracture 7.7 percent. (T score greater or equal to -1.0 to: NORMAL) (T score from -1.1 to -2.4: OSTEOPENIA) (T score less than or equal to -2.5: OSTEOPOROSIS) IMPRESSION: Osteoporosis. Follow-up guidelines as follows: Osteoporosis: Consider a repeat DEXA and Vertebral Fracture Assessment (VFA) exam in 2 years or sooner if medically necessary, to reassess this patient's status. Osteopenia: Consider a repeat DEXA in 2-3 years to reassess this patient's status, or if there is a new clinical indication. Normal: Consider a repeat DEXA in 5 years or sooner, or if there is a new clinical indication. All treatment decisions require clinical judgment and consideration of individual patient factors, including patient preferences, comorbidities, previous drug use, risk factors not captured in the FRAX model (e.g., frailty, falls, vitamin D deficiency, increased bone turnover, interval significant decline in bone density ) and possible under- or over-estimation of fracture risk by FRAX. In addition, the NOF Guide recommends that FDA-approved medical therapies be considered in postmenopausal women and men age >= 50 years with a: * Hip or vertebral (clinical or morphometric) fracture * T-score of <=-2.5 at the spine or hip * Ten-year fracture probability by FRAX of >= 3% for hip fracture or >=20% for major osteoporotic fracture. People with diagnosed cases of osteoporosis or at high risk for fracture should have regular bone mineral density tests. For patients eligible for Medicare, routine testing is allowed once every 2 years. The testing frequency can be increased to one year for patients who have rapidly progressing disease, those who are receiving or discontinuing medical therapy to restore bone mass, or have additional risk factors. Dictated by: Haris Gutierrez M.D. on 03/09/2024 at 15:32 Approved by: Haris Gutierrez M.D. on 03/09/2024 at 15:33
== END ==
PROVIDERS: PCP Student in an Organized Health Care Education/Training Program; Referring Provider Student in an Organized Health Care Education/Training Program; Visit Provider Student in an Organized Health Care Education/Training Program
DX: M81.0 Age-related osteoporosis without current pathological fracture (principal)
CPT/HCPCS: 77080

== ENCOUNTER → 2024-04-11 10:15 | Outpatient (CLI) | payer MEDICARE, OTHER, SELFPAY ==
[2024-04-11 12:16] LABS: Cholesterol 215 mg/dL (140-199); HDL Cholesterol 57 mg/dL (40-60); LDL Cholesterol Calculated 133 mg/dL (<100); Triglycerides 124 mg/dL (35-150)
[2024-04-11 12:18] LABS: Hemoglobin A1C% w Est Avg Glu 4.9 % (4.0-6.0)
== END ==
PROVIDERS: PCP Student in an Organized Health Care Education/Training Program; Referring Provider Student in an Organized Health Care Education/Training Program; Visit Provider Student in an Organized Health Care Education/Training Program
DX: R73.03 Prediabetes (principal); E78.2 Mixed hyperlipidemia
CPT/HCPCS: 36415; 80061; 83036

== ENCOUNTER → 2024-10-27 10:57 | Outpatient (CLI) | payer MEDICARE, OTHER, SELFPAY ==
--- NOTE | 2024-10-27 10:58 | DI.RAD.S_ITS ---
PROCEDURE: XR HIP W PEL IF DONE LT 2V INDICATIONS: Left hip pain TECHNIQUE: 2 views of the hip were acquired. COMPARISON: None. FINDINGS: Bones: No fractures or dislocations. No suspicious bony lesions. The visualized pelvic ring appears intact. Joint space narrowing and subchondral sclerosis. Femoral head maintains a normal contour Soft tissues: No suspicious soft tissue calcifications or masses. IMPRESSION: Moderate degenerative arthritic changes Approved by: Rohit Atkins M.D. on 10/28/2024 at 15:19
--- NOTE | 2024-10-27 10:58 | DI.RAD.S_ITS ---
PROCEDURE: XR ANKLE LT 2V INDICATIONS: Left ankle pain TECHNIQUE: 3 views of the ankle were acquired. COMPARISON: [facility], CR, XR ANKLE LT MIN 3V, 12/23/2021, 3:46. FINDINGS: Bones: Old healed by malleolar instrumented fracture. Ankle mortise is maintained. No acute fracture. Soft tissues: No tibiotalar joint effusion. Achilles tendon appears normal. IMPRESSION: No acute bony abnormality or significant effusion. Approved by: Rohit Atkins M.D. on 10/28/2024 at 15:18
== END ==
PROVIDERS: PCP Family Medicine; Referring Provider Family Medicine; Visit Provider Family Medicine
DX: M25.579 Pain in unspecified ankle and joints of unspecified foot (principal); M25.552 Pain in left hip; Z87.81 Personal history of (healed) traumatic fracture
CPT/HCPCS: 73502; 73600

== ENCOUNTER → 2024-11-10 11:42 | Outpatient (CLI) | payer MEDICARE, OTHER, SELFPAY ==
--- NOTE | 2024-11-10 11:43 | DI.MRI.S_ITS ---
PROCEDURE: MR LUMBAR SPINE WO CON INDICATIONS: Evaluate back pain for nerve involvement TECHNIQUE: Noncontrast sagittal T1 spin echo and T2 fast echo, sagittal STIR, and T2 fast spin echo through the lumbar spine. In cases with scoliosis, additional coronal T2 fast spin echo may be performed. COMPARISON: [facility], CT, CT ABDOMEN PELVIS W CON, 08/24/2020, 11:36. FINDINGS: Image quality: 3 Alignment and Curvature: There is normal bony alignment. Bone Marrow: Marrow is of normal overall signal. No acute vertebral body compression fractures. Spinal Cord: Conus medullaris terminates at the T12-L1 level. Visualized cord demonstrates normal signal and size. Paraspinous Soft Tissues: No paravertebral masses. Water signal cysts can be seen. T12-L1: Normal appearance. L1-L2: The disc height and disk signal are relatively well-preserved. Mild generalized disc bulge is seen. Mild facet joint hypertrophy is seen. There is mild left-sided and no significant right-sided neural foraminal narrowing. Minimal central canal narrowing is seen. L2-L3: The disc height and disk signal are relatively well-preserved. Mild generalized disc bulge is seen. Mild facet joint hypertrophy is seen. There is moderate bilateral neural foraminal narrowing. Mild central canal narrowing is seen. L3-L4: The disc height and disk signal are relatively well-preserved. Mild generalized disc bulge is seen. There is a left foraminal annular fissure seen, as on series 2, image 12. Mild facet joint hypertrophy is seen. Moderate bilateral neural foraminal narrowing is seen, left worse than right. Mild central canal narrowing is seen. L4-L5: The disc height is well-preserved. Loss of disc signal is seen at this level. Mild generalized disc bulge is seen. There is a superimposed central disc protrusion. There is a focal annular fissure seen posteriorly. Moderate facet joint hypertrophy is seen. There is at least moderate bilateral neural foraminal narrowing seen. Minimal central canal narrowing is seen. L5-S1: No significant abnormality is seen. IMPRESSION: Lumbar spine degenerative changes are seen, which are overall worst at the L4-L5 level. Dictated by: Benedicto Vanegas M.D. on 11/11/2024 at 4:44 Approved by: Benedicto Vanegas M.D. on 11/11/2024 at 4:50
== END ==
PROVIDERS: PCP Family Medicine; Referring Provider Orthopaedic Surgery Adult Reconstructive Orthopaedic Surgery; Visit Provider Orthopaedic Surgery Adult Reconstructive Orthopaedic Surgery
DX: M51.26 Other intervertebral disc displacement, lumbar region (principal); M51.369 Other intervertebral disc degeneration, lumbar region without mention of lumbar back pain or lower extremity pain; M47.816 Spondylosis without myelopathy or radiculopathy, lumbar region; M48.061 Spinal stenosis, lumbar region without neurogenic claudication
CPT/HCPCS: 72148

== ENCOUNTER → 2024-11-28 08:57 | Outpatient (CLI) | payer MEDICARE, OTHER, SELFPAY ==
[2024-11-28 09:27] LABS: Hemoglobin A1C% w Est Avg Glu 4.8 % (4.0-6.0)
[2024-11-28 09:40] LABS: Add Manual Diff / Slide Review NO; Basophils Absolute Auto 100 /uL (0-100); Basophils Percent Auto 0.9 % (0-2); Eosinophils Absolute Auto 500 /uL (0-450); Eosinophils Percent Auto 6.5 % (2-4); Hematocrit 43.7 % (36-46); Hemoglobin 15.1 g/dL (12.0-16.0); Lymphocytes Absolute Auto 2900 /uL (1100-4500); Lymphocytes Percent Auto 40.6 % (25-40); Mean Corpuscular HGB Conc 34.6 % (30-36); Mean Corpuscular Hemoglobin 34.5 PG (26-34); Mean Corpuscular Volume 99.8 fL (80-100); Monocytes Absolute Auto 700 /uL (0-900); Monocytes Percent Auto 9.4 % (3-14); Neutrophils Absolute Auto 3000 /uL (1500-7000); Neutrophils Percent Auto 42.6 % (50-75); Platelet Count 300 X10^3/uL (150-400); Red Blood Cell Count 4.38 X10^6/uL (4.0-5.2); Red Cell Distribution Width 12.8 % (11.6-14.8); White Blood Cell Count 7.1 X10^3/uL (4.5-11.0)
[2024-11-28 09:51] LABS: Alanine Aminotransferase 21 IU/L (<35); Albumin 4.6 g/dL (3.5-5.0); Albumin Globulin Ratio 1.5 (1.0-2.8); Alkaline Phosphatase 43 U/L (38-126); Aspartate Aminotransferase 29 IU/L (14-36); BUN Creatinine Ratio 18.2 (6-22); Bilirubin Total 0.8 mg/dL (0.2-1.3); Blood Urea Nitrogen 14 mg/dL (7-17); Calcium 9.2 mg/dL (8.4-10.2); Carbon Dioxide 26 mmol/L (22-32); Chloride 99 mmol/L (98-107); Cholesterol 213 mg/dL (140-199); Estimated Glomerular Filt Rate > 60 mL/min (>60); Glucose 104 mg/dL (70-99); HDL Cholesterol 59 mg/dL (40-60); HEMOLYSIS < 15 (0-50); LDL Cholesterol Calculated 132 mg/dL (<100); Potassium 4.4 mmol/L (3.4-5.1); Sodium 134 mmol/L (137-145); Total Protein 7.6 g/dL (6.3-8.2); Triglycerides 112 mg/dL (35-150)
== END ==
PROVIDERS: PCP Family Medicine; Referring Provider Family Medicine; Visit Provider Family Medicine
DX: R73.03 Prediabetes (principal); E78.2 Mixed hyperlipidemia; K57.92 Diverticulitis of intestine, part unspecified, without perforation or abscess without bleeding; Z13.6 Encounter for screening for cardiovascular disorders; Z72.0 Tobacco use
CPT/HCPCS: 36415; 80053; 80061; 83036; 85025

== ENCOUNTER → 2025-01-16 10:38 | Outpatient (CLI) | payer MEDICARE, OTHER, SELFPAY ==
--- NOTE | 2025-01-16 10:40 | DI.RAD.S_ITS ---
PROCEDURE: XR LUMBAR SPINE MIN 4V INDICATIONS: BACK PAIN TECHNIQUE: 5 views of the lumbar spine were acquired, including bilateral oblique views. COMPARISON: None. FINDINGS: Bones: 5 nonrib-bearing vertebrae are present. There is normal bony alignment. No vertebral body compression fractures. No suspicious bony lesions. Mild multilevel degenerative disc disease. Soft tissues: Overlying bowel gas pattern is normal. No suspicious soft tissue calcifications. Oblique images: No pars defects. IMPRESSION: Mild multilevel degenerative disc disease. Dictated by: Edd Green M.D. on 01/16/2025 at 11:09 Approved by: Edd Green M.D. on 01/16/2025 at 11:10
== END ==
PROVIDERS: PCP Family Medicine; Referring Provider Family Medicine; Visit Provider Physical Medicine & Rehabilitation
DX: M54.9 Dorsalgia, unspecified (principal); M51.369 Other intervertebral disc degeneration, lumbar region without mention of lumbar back pain or lower extremity pain
CPT/HCPCS: 72110

== ENCOUNTER → 2025-02-22 09:52 | Outpatient (CLI) | payer MEDICARE, OTHER, SELFPAY ==
[2025-02-22 11:31] LABS: Cholesterol 173 mg/dL (140-199); HDL Cholesterol 74 mg/dL (40-60); Triglycerides 78 mg/dL (35-150)
== END ==
PROVIDERS: Family Provider Family Medicine; PCP Family Medicine; Referring Provider Family Medicine; Visit Provider Family Medicine
DX: E78.5 Hyperlipidemia, unspecified (principal)
CPT/HCPCS: 36415; 80061

== ENCOUNTER → 2025-02-28 | Outpatient (CLI) | payer MEDICARE, OTHER, SELFPAY ==
--- NOTE | 2025-02-28 13:44 | DI.MG.S_ITS ---
MM screening mammo BI: 02/28/2025. BI-RADS: 1 CLINICAL: 69-year old female for bilateral screening mammogram. Tyrer-Cuzick lifetime risk of 3.0%. No personal or first-degree family history of breast cancer. PRIOR EXAMS 08/28/2017. MAMMOGRAPHY TECHNIQUE: 2D and 3D (tomosynthesis) digital mammographic views obtained, with additional images as needed for full coverage. Current study was also evaluated with a Computer Aided Detection (CAD) system. DENSITY B. There are scattered areas of fibroglandular density. MAMMOGRAPHY FINDINGS Bilateral: No suspicious mass, asymmetry, microcalcification, or other abnormality seen. IMPRESSION: * No evidence of malignancy. RECOMMENDATIONS Bilateral * Annual screening mammography. OVERALL ASSESSMENT CATEGORY BI-RADS-1: Negative. The [employer] recommends annual screening mammography beginning at age 40 for women with average risk of breast cancer. ELECTRONICALLY SIGNED: Inocencia Roman M.D. on 03/04/2025 at 03:38:42 PM PT Interpreting Station ID: [id number]
== END ==
LOC: MAMMO 13:44
PROVIDERS: Family Provider Family Medicine; PCP Family Medicine; Referring Provider Family Medicine; Visit Provider Family Medicine
DX: Z12.31 Encounter for screening mammogram for malignant neoplasm of breast (principal)
CPT/HCPCS: 77063; 77067

== ENCOUNTER 2025-04-12 12:15 | Outpatient (RCR) | payer MEDICARE, OTHER, SELFPAY ==
--- NOTE | 2025-03-15 17:48 | PT.OPPOC ---
Physical, Occupational & Speech Therapy At [facility] Current Diagnoses Radiculopathy, lumbosacral region (03/15/25) Visit Care Team Role Provider Type Sonam Godoy MD Family Provider Physician Primary Care Provider Specialty: Family Practice COMMERCIAL REAL ESTATE UNDERWRITER Address: [facility] [place], [address] Email: [email or web address] Luis Fernando Moreno DO Attending Provider Physician Referring Provider Specialty: Interventional Radiology Physiatry Pain Management Address: [address] [place] [address], [address] Phone: Fax: Email: [email or web address] Plan Of Care PT OP: Lower Back/Lower Extremity Start: 03/15/25 17:12 Freq: Status: Active Protocol: Document 03/15/25 11:30 DCW (Rec: 03/15/25 17:45 DCW [id number]) Out-Patient Physical Therapy Visit Information Visit Information Visit Type Initial Evaluation Visit Start Time 11:30 Visit Stop Time 12:15 Visit Number 1 Number of PROGRAM DEVELOPMENT SPECIALIST Visits 0 Progress Note Due 04/14/25 Evaluation Information Evaluation Date 03/15/25 Current Condition History of Current Condition History of Current Pt is a 69 year old female presenting with a history of Condition low back and left leg pain. Pt has difficulty describing symptoms or onset, symptoms started a while ago, began with some burning in her thigh. Reposts she got a Cortisone injection, which helped for quite a while, but then she ended up breaking her ankle and needed a surgical repair, and during recovery, due to the way she was walking, her hip and back got sore again. Pt reports symptoms come and go, severity and location of pain change, but the main location appears to be her left posterior hip. Notes that everything makes it worse, increased pain when standing or sitting too long, notes increased pain getting up after riding in car. Also notes occasionally feeling like her leg is weak and going to give out, I just don't trust it if I have to do something like climb a ladder. OP-PT Subjective Patient Comments Patient Comments I just power through the pain. Patient Reported Same Progress Manual Assessments Soft Tissue Assessment Soft Tissue Mobility Moderate-severe tone with tenderness to palpation 3/4: Assessment wincing and withdraw on left piriformis Joint Mobility Assessment Joint Mobility left hip mobility significantly limited with PROM, Assessment horizontal adduction and internal rotation unable to go past neutral Special Tests Lumbar Spine Special Tests Vertical Spine Loading Test Results Negative Straight Leg Raise Test Results Negative Standing Flexion Test Results Negative Slump Test Results Negative Compression Test Results Negative Hip Special Tests CHANDNI Test Results Limited left hip mobility Hip Strength Hip Manual Muscle Testing Right Flexion (L2) 4+ Good+ Abduction 4+ Good+ Adduction 4+ Good+ External Rotation 4+ Good+ Internal Rotation 4+ Good+ Left Flexion (L2) 3+ Fair+ Abduction 4- Good- Adduction 4- Good- External Rotation 4 Good Internal Rotation 4 Good Comments Pain with resisted external rotation Knee Strength Knee Manual Muscle Testing Right Flexion (S2) 4+ Good+ Extension (L3) 4+ Good+ Left Flexion (S2) 4+ Good+ Extension (L3) 4+ Good+ Therapeutic Exercises Supine Exercises Piriformis Supine Exercise Name Figure-4, knee to opposite shoulder Side left Comments Pt unable to perform due to hip limitations Sitting Exercises Piriformis Sitting Exercise Seated Figure-4 Name Side left Physical Therapy Assessment Rehab Potential Rehabilitation Good Potential Evaluation Complexity Number of Personal 3 or More Factors/ Comorbidities Number of Body 4 or More Systems Impaired Clinical Unstable Presentation at Evaluation Impairments Impairments Activity Tolerance,Functional Activities,Functional Mobility,Pain,ROM,Strength Goals Three Impairment Pt unable to sit in her car for longer than 20 minutes without leg pain Reading Teacher Goal (LTG) Pt to report ability to drive for 60 minutes without rest without increasing left leg pain LTG Duration 06/13/25 Two Impairment Left hip weakness Reading Teacher Goal (LTG) Pt to improve left hip flexion and abduction MMT to 4/5 or greater to improve hip stability LTG Duration 06/13/25 One Impairment Pt does not have an appropriate home exercise program Skilled Nursing Goal (LTG) Pt to demonstrate ability to correctly perform three home exercises without instruction to demonstrate independence with HEP. LTG Duration 06/13/25 Assessment Summary Assessment Pt presents with signs and symptoms consistent with referring diagnosis. Pt exhibits likely degenerative changes in her lumbar spine, as well as limitations in her left hip strength and mobility. Testing shows significant hypertonia in posterior hip limiting IR and hip adduction, as well as tenderness to palpation of left piriformis. Pt will likely benefit from skilled therapy focusing on strengthening of the hip and core, improving low back and left hip mobility, STM and stretching, as well as improving functional mobility. Physical Therapy Plan Frequency and Duration Frequency of 2x/Week Treatment Plan of Care Start 03/15/25 Date Plan of Care End 06/13/25 Date Therapeutic Interventions Therapeutic Home Exercise Program,Joint Mobilizations,Manual Interventions Therapy,Neuromuscular Re-education,Patient/Caregiver Education,Self-Care/Home Management,Soft Tissue Mobilization,Therapeutic Activities,Therapeutic Exercises Modalities Cold Pack/Ice Massage,Electric Stimulation,Hot Packs, Ultrasound Next Visit Focus/Plan Next Note Type Treatment Note Next Visit Plan STM, stretching, hip strengthening Plan of Care Dates Plan of Care Start Date 03/15/25 Plan of Care End Date 06/13/25 Electronically Signed by: Hussein Love, PT 03/15/25 0223 If you are in agreement with this Plan of Care, please return a signed and dated copy. I have reviewed this Plan of Care and certify that the skilled therapy services above are required to meet the patient?s needs. Physician Signature Date Printed Name and Credentials Clinical Instructor Signature Printed Name and Credentials
--- NOTE | 2025-04-04 17:48 | PT.OTN ---
Current Diagnoses Radiculopathy, lumbosacral region (04/04/25) Physical Therapy Treatment Note PT OP: Lower Back/Lower Extremity Start: 03/15/25 17:12 Freq: Status: Active Protocol: Document 04/04/25 16:26 AB (Rec: 04/04/25 17:29 AB [id number]) Out-Patient Physical Therapy Visit Information Visit Information Visit Type Treatment Note Visit Start Time 16:29 Visit Stop Time 17:16 Visit Number 2 Number of MORTARMAN Visits 1 Progress Note Due 04/14/25 OP-PT Subjective Patient Comments Patient Comments Patient reports she did the exercise up to 2 days ago then stopped due to increased pain. Patient reports the ball helped. Therapeutic Exercises Supine Exercises Modified Jose stretch Supine Exercise Name HEP Side bilateral Reps/Minutes 60 sec with AROM knee flexion X 10 Comments verbal cues Piriformis Supine Exercise Name piriformis Side left Reps/Minutes trial X 3 pre and post manual tech Comments not cindy inc ache ant LE reports no sensation of stretch glute area Sidelying Exercises reverse clamshell Sidelying Exercise AROM HEP Name Side bilateral Reps/Minutes X 15 Comments verbal and tactile cues at trunk clamshell Sidelying Exercise AROM HEP Name Side bilateral Reps/Minutes X 15 Comments verbal cues Sitting Exercises seated hip abd with band Sitting Exercise HEP Name Side bilateral Resistance level 3 band Reps/Minutes 60 sec X 1 Comments verbal cues AROM hip ER Sitting Exercise AROM HEP Name Side left Reps/Minutes X 15 Comments verbal and tactile cues Standing Exercises sit to stand X 6 Reps/Minutes X 6 Comments Pt ed mech of sit to stand. Patient ed use of self tactile cues Manual Therapy Treatment Consent Patient gave verbal Yes consent for manual treatment Soft Tissue Mobilization Lumbar paraspinals Body Location bilateral Mobilization Type Cross-Friction,Sustained Pressure Intensity/Depth Superficial Body Position Sidelying L glute piriformis Body Location B glute/piriformis this session Mobilization Type Cross-Friction,Rolling Intensity/Depth Moderate Body Position Sidelying Joint Mobilizations left hip Joint AP and med to lat Grade IV Body Position Hooklying Reps/Duration 3X 10 Manual Techniques contract relax into hip IR Type Bilateral hips Reps/Duration 15 sec X 2 trials each LE with and without towel roll SAEZ LPI MET Reps/Duration MET for R AI L and pubic shot gun Comments 6 X 6 sec each Physical Therapy Assessment Goals Three Impairment Pt unable to sit in her car for longer than 20 minutes without leg pain Vacuum Kettle Cook Goal (LTG) Pt to report ability to drive for 60 minutes without rest without increasing left leg pain LTG Duration 06/13/25 Two Impairment Left hip weakness Vacuum Kettle Cook Goal (LTG) Pt to improve left hip flexion and abduction MMT to 4/5 or greater to improve hip stability LTG Duration 06/13/25 One Impairment Pt does not have an appropriate home exercise program Vacuum Kettle Cook Goal (LTG) Pt to demonstrate ability to correctly perform three home exercises without instruction to demonstrate independence with HEP. LTG Duration 06/13/25 Assessment Summary Assessment Patient reports the ache is less post manual therapy. Patient able to perform sit to stand with improved hip hinge and visible decreased effort to perform task. Physical Therapy Plan Frequency and Duration Frequency of 2x/Week Treatment Plan of Care Start 03/15/25 Date Plan of Care End 06/13/25 Date Next Visit Focus/Plan Next Note Type Treatment Note Next Visit Plan STM, stretching, hip strengthening
--- NOTE | 2025-04-12 13:00 | PT.OPPN ---
Current Diagnoses Radiculopathy, lumbosacral region (04/12/25) Physical Therapy Progress Note PT OP: Lower Back/Lower Extremity Start: 03/15/25 17:12 Freq: Status: Active Protocol: Document 04/12/25 12:15 DCW (Rec: 04/12/25 13:00 DCW [id number]) Out-Patient Physical Therapy Visit Information Visit Information Visit Type Progress Note Visit Start Time 12:15 Visit Stop Time 13:00 Visit Number 3 Number of OFFSET LITHOGRAPHIC PRESS SETTER Visits 0 Progress Note Due 05/12/25 Evaluation Information Evaluation Date 03/15/25 OP-PT Subjective Patient Comments Patient Comments That tennis ball thing works the best. Therapeutic Exercises Supine Exercises Piriformis Supine Exercise Name Figure-4, knee to opposite shoulder Side left Comments Gentle manual stretch Standing Exercises Extension Standing Exercise Hip Extension Name Side bilateral Resistance Green loop Other Exercises Resisted Ambulation Other Exercise Name Resisted Side-stepping Resistance Green loop Manual Therapy Treatment Consent Patient gave verbal Yes consent for manual treatment Soft Tissue Mobilization Lumbar paraspinals Body Location bilateral Mobilization Type Cross-Friction,Sustained Pressure Intensity/Depth Superficial Body Position Sidelying L glute piriformis Body Location L glute/piriformis Mobilization Type Cross-Friction,Rolling Intensity/Depth Moderate Body Position Sidelying Joint Mobilizations left hip Joint Short-axis /c strap Direction Inferiolateral Grade IV Body Position Hoklying Physical Therapy Assessment Impairments Impairments Activity Tolerance,Functional Activities,Functional Mobility,Pain,ROM,Strength Goals Three Impairment Pt unable to sit in her car for longer than 20 minutes without leg pain Subpoena Server Goal (LTG) Pt to report ability to drive for 60 minutes without rest without increasing left leg pain LTG Duration 06/13/25 Two Impairment Left hip weakness [facility]ci Goal (LTG) Pt to improve left hip flexion and abduction MMT to 4/5 or greater to improve hip stability LTG Duration 06/13/25 One Impairment Pt does not have an appropriate home exercise program Subpoena Server Goal (LTG) Pt to demonstrate ability to correctly perform three home exercises without instruction to demonstrate independence with HEP. LTG Duration 06/13/25 Assessment Summary Assessment Slight improvements to tolerance to stretching, doing well with some HEP, likes Jose stretch and felt good with resisted side-stepping today, so provided patient with T-band loop to perform at home. Pt does still get soreness when first getting up, but notes it seems to loosen up a little faster now. Continue focus on tone management and strengthening. Physical Therapy Plan Frequency and Duration Frequency of 2x/Week Treatment Plan of Care Start 03/15/25 Date Plan of Care End 06/13/25 Date Therapeutic Interventions Therapeutic Home Exercise Program,Joint Mobilizations,Manual Interventions Therapy,Neuromuscular Re-education,Patient/Caregiver Education,Self-Care/Home Management,Soft Tissue Mobilization,Therapeutic Activities,Therapeutic Exercises Modalities Cold Pack/Ice Massage,Electric Stimulation,Hot Packs, Ultrasound Next Visit Focus/Plan Next Note Type Treatment Note Next Visit Plan STM, stretching, hip strengthening
--- NOTE | 2025-04-24 14:08 | PT.OPDS ---
Current Diagnoses Radiculopathy, lumbosacral region (04/12/25) Visit Care Team Role Provider Type Sonam Godoy MD Family Provider Physician Primary Care Provider Specialty: Family Practice INDUSTRIAL CHEMICALS SUPERVISOR Address: [address] [place], [address] Email: [email or web address] Luis Fernando Moreno DO Attending Provider Physician Referring Provider Specialty: Interventional Radiology Physiatry Pain Management Address: [address] [place] [address], [address] Phone: Fax: Email: [email or web address] Visit Number Visit Number 3 Discharge Summary PT OP: Lower Back/Lower Extremity Start: 03/15/25 17:12 Freq: Status: Active Protocol: Document 04/24/25 14:06 DCW (Rec: 04/24/25 14:08 DCW [id number]) Out-Patient Physical Therapy Visit Information Visit Information Visit Type Discharge Summary Physical Therapy Assessment Assessment Summary Assessment Pt phoned clinic to cancel remaining appointments and request discharge. Pt will be discharged from skilled therapy at this time. Physical Therapy Plan Frequency and Duration Frequency of 2x/Week Treatment Plan of Care Start 03/15/25 Date Plan of Care End 06/13/25 Date Discharge Physical Therapy Discharge Reasons Patient Request
== END 2025-04-25 11:12 | disposition home or self-care (01) ==
LOC: PHYS 12:15
PROVIDERS: Family Provider Family Medicine; PCP Family Medicine; Referring Provider Physical Medicine & Rehabilitation; Visit Provider Physical Medicine & Rehabilitation
DX: M54.17 Radiculopathy, lumbosacral region (principal)
CPT/HCPCS: 97110; 97140; 97163; J1010

== ENCOUNTER 2025-04-27 09:09 | Outpatient (CLI) | payer MEDICARE, OTHER, SELFPAY ==
[2025-04-27 09:45] VITALS: BP 142/82; PULSE 80; RESP 16; TEMP 36.2; O2SAT 94
[2025-04-27 09:59] VITALS: BP 158/85; PULSE 79; RESP 16; O2SAT 100
[2025-04-27 10:04] VITALS: BP 150/85; PULSE 80; RESP 16; O2SAT 99
[2025-04-27] MEDS: TRIAMCINOLONE 40 MG/ML VIAL INJ (10:04)
[2025-04-27] MEDS: LIDOCAINE 1% (PF) 5 ML 10 ML INJ (10:04)
[2025-04-27 10:13] VITALS: BP 139/86; PULSE 79; RESP 18; O2SAT 99
--- NOTE | 2025-04-27 12:28 | PM.PROC.IR.1 ---
Date/Time/Diagnoses Date of procedure: 04/27/25 Time of procedure: 10:00 Pre-procedure diagnosis: Left hip pain, osteoarthritis Post-procedure diagnosis: same Procedure Notes Procedure: Left hip joint injection with fluoroscopic guidance Indications: Left hip pain, osteoarthritis Physician: Luis Fernando Moreno Total sedation minutes: 0 Complications: none Procedure in detail & Post-procedure care: Patient is here for the planned procedure today as noted. No significant change since the last office visit. For additional clinical scenario please see those office notes. Focused exam: Vital signs reviewed as charted on intake. Gen: Well developed. No acute distress. CV: RRR, no M/R/G Chest: Non-labored breathing, CTAB. Psych: Alert and well-oriented. Mood/Affect: normal. Patient suitable for the planned procedure today: Yes === The following procedure was performed today: Hip joint injection under fluoroscopic guidance (lateral approach) (89503, [id number]) Approach: Lateral Laterality: Left Soft tissue: [1% lidocaine 2 mL] Injectate: [Triamcinolone 1 mL (40 mg/mL) in 5 mL of 1% lidocaine] Fluoroscopy Agent: Isovue 300-M 1 mL Notes: 3.5 in 22 gauge spinal needle utilized an adequate. Preprocedure pain 1/10, postprocedure pain 0/10. Procedure: The patient was prepped and draped in a sterile fashion after being placed in the side-lying position. A lateral fluoroscopic view of the hip was obtained. After skin preparation, a 25 gauge needle was used to anesthetize the skin with the anesthetic noted above. A 22 gauge spinal needle was inserted with fluoroscopic guidance to contact periosteum at the femoral head-neck junction, confirmed with multiplanar views. Then, the contrast noted above was injected and a partial hip arthrogram was obtained. The anesthetic/steroid solution noted above was slowly injected into the hip joint. The needle was withdrawn. Appropriate radiographs were obtained. The patient tolerated the procedure well and was discharged after an appropriate period of observation. If there are any complications, the patient was instructed to call us. The patient is to follow-up with the referring provider in 2-3 weeks/as planned. This note was compiled using voice recognition software and therefore may contain typos. Please contact the author with any questions or concerns.
== END 2025-04-27 10:16 | disposition home or self-care (01) ==
LOC: RAD 09:10
PROVIDERS: Family Provider Family Medicine; PCP Family Medicine; Referring Provider Physical Medicine & Rehabilitation; Visit Provider Physical Medicine & Rehabilitation
DX: M16.32 Unilateral osteoarthritis resulting from hip dysplasia, left hip (principal); M25.552 Pain in left hip
CPT/HCPCS: 20610; 77002